=== PATIENT | female | born 1960 | race African-American/Black ===

== ENCOUNTER 2017-04-10 10:02 | Outpatient (CLI) | payer BC ==
[2017-04-10 12:23] LABS: Hematocrit 42.5 % (36.0-47.0); Red Blood Cell (RBC) Count 4.45 mill/uL (4.20-5.40); White Blood Cell (WBC) Count 4.3 thou/uL (4.8-10.8)
[2017-04-10 12:32] LABS: Bilirubin Negative (Negative); Blood, Urine Negative (Negative); Glucose, Urine (Dipstick) Negative (Negative); Ketone, Urine Negative (Negative); Nitrite Negative (Negative); Protein, Urine (Dipstick) Negative (Neg-Trace)
[2017-04-10 12:40] LABS: Bacteria/HPF None Seen HPF (None Seen); Hyaline Casts/LPF 0-3 HYALINE CAST LPF (0-3 Hyaline); RBC/HPF 0-3 HPF (0-3); Squamous Epithelial 0-3 HPF (0-3); WBC/HPF 0-3 HPF (0-3)
== END 2017-04-10 10:03 | disposition home or self-care (01) ==
LOC: LABBT 10:02
PROVIDERS: ATTEND Orthopaedic Surgery
DX: Z01.818 Encounter for other preprocedural examination (principal); M75.122 Complete rotator cuff tear or rupture of left shoulder, not specified as traumatic
CPT/HCPCS: 81001; 85027; 93005; 93010

== ENCOUNTER 2017-04-12 06:56 | Day surgery (SDC) | payer BC ==
[2017-04-10 10:21] VITALS: BMI 43.6
[2017-04-12] MEDS ORDERED: Midazolam HCl 2 mg/2 ml Vial ONE (07:45)
[2017-04-12] MEDS ORDERED: Fentanyl 100 MCG/2 ML VIAL ONE (07:45)
[2017-04-12] MEDS ORDERED: Ropivacaine 0.2% HCl/PF 20 ML ONE (07:45)
[2017-04-12] MEDS ORDERED: CEFAZOLIN/Water 2 GM/20 ML SYRINGE ONE (07:48)
[2017-04-12] MEDS ORDERED: Ketorolac Tromethamine 30 MG/ML VIAL IVP PRN (08:51)
[2017-04-12] MEDS ORDERED: Ondansetron HCl/PF 4 MG/2 ML Vial IVP PRN (08:51)
[2017-04-12] MEDS ORDERED: Promethazine HCl 25 MG/ML VIAL IM PRN (08:51)
[2017-04-12] MEDS ORDERED: Ropivacaine 0.2% 550 ML 550 ML NERVE BLCK SCH (08:51)
[2017-04-12] MEDS ORDERED: HYDROcodone/Acetaminophen 5/325 mg Tablet PO PRN ×2 (08:51)
[2017-04-12] MEDS ORDERED: traMADol HCl 50 MG TAB PO PRN ×2 (08:51)
[2017-04-12] MEDS ORDERED: Zolpidem Tartrate 5 MG TAB PO PRN (08:51)
[2017-04-12] MEDS ORDERED: Fentanyl 100 MCG/2 ML VIAL IV PRN (08:52)
[2017-04-12] MEDS ORDERED: Bupivacaine/Epinephrine 0.25% 30 ML VIAL ONE (09:05)
--- NOTE | 2017-04-12 13:26 | OP ---
DATE OF PROCEDURE: 04/12/2017 PREOPERATIVE DIAGNOSES: Left full-thickness supraspinatus, infraspinatus, teres tear with bleeding e dge subscapularis tear with retraction and fatty atrophy. POSTOPERATIVE DIAGNOSES: Left full-thickness supraspinatus, infraspinatus, teres tear with bleeding edge subscapularis tear with retraction and fatty atrophy with a biceps lesion. Full thickness supraspinatus and infraspinatus leading edge of the teres and subscapularis with a rup tured biceps chronic rotator cuff tear. PROCEDURE PERFORMED: Left arthroscopic rotator repair, double row. STAFF: Facundo Guthrie M.D. FINANCIAL ANALYSIS CONSULTANT: MARILYN Cintron. ANESTHESIA: Sukh Brand. The patient received a supraclavicular block, general endotracheal intubati on. ESTIMATED BLOOD LOSS: 50 mL. TOURNIQUET TIME: None. IMPLANTS: Implants were x3 5-5 corkscrews and x2 [employer] corkscrews and x2 5.5 [employer] site [employer]. ANTIBIOTICS: Ancef 2 grams. COMPLICATIONS: None. HISTORY OF PRESENT ILLNESS: Ms. Blair is a 57-year-old female who presented to me with left shoulder pain. The patient's pain had been present since 2011, pain can be 10/10, constant 4/10. The patien t has a history of bypass surgery. The patient had MRI evidence of a large full-thickness tear with retraction. I discussed with the patient preoperatively performing either a suprascapular reconstruc tion versus a rotator cuff repair and possible biceps tenotomy. The patient understood the risks and benefits of procedure to include pain, scar, bleeding, infection, damage to vital structures, failur e of repair, need for further surgeries, continued pain despite surgical intervention, loss of life o r limb, need for further surgeries to include reverse shoulder arthroplasty. The patient and family understood the risks and benefits and elected to proceed. PROCEDURE IN DETAIL: Timeout was performed designating the patient's left upper extremity as the ope rative site. Based on sight, consents and markings, after completion of timeout, the patient had a p osterior lateral working portal placed to visualize the rotator cuff, I did not insert intraarticular ly because I had planned doing a superior capsular reconstruction. Therefore I started from a large portal. I came in, I saw a remnant cuff tissue plane that was above that was peeled back. It was o bviously atrophied, but it served the same purpose as a superior capsular reconstruction. Given that , I visualized inside the joint. There were some degenerative changes, but not any massive full thic kness cartilage defects. There was a biceps that had already ruptured. I used a bur and burred to b leeding bone and took down 3-4 mm of the articular cartilage. I then placed 3 anchors along the fron t edge of the cartilage to pass and passed a total of 12 sutures strings for my first row, tying 6 kn ots. I then placed 2 more lateral row anchors to sew into place, I think 3 of the strands had a lit tle less tension than I desired, I pulled them taut, screwed them into place and completed my double row repair. I washed. I then closed the suture incisions with nylon. The patient's outlook is guarded. I am not sure she is going to have great healing rate of this, but given the patient's previous history of a massive cuff tear and the only option of a superior capsu lar reconstruction, her soft tissues serve as just the same purpose as superior capsular reconstructi on. I did not put it on too much tension. I felt like she had good overall coverage, hopefully she can have a healing of the rotator cuff. I will place the patient in a sling. I will see her back in 2 weeks.
[2017-04-12] MEDS ORDERED: Propofol 200 MG/20 ML VIAL ONE (15:16)
[2017-04-12] MEDS ORDERED: Ondansetron HCl/PF 4 MG/2 ML Vial ONE (15:16)
[2017-04-12] MEDS ORDERED: Glycopyrrolate 0.2 MG/ML 5 ML SYRINGE ONE (15:16)
[2017-04-12] MEDS ORDERED: ePHEDrine/0.9% NaCl/PF SYRINGE 50 mg/10 ml ONE (15:16)
== END 2017-04-12 14:35 | disposition home or self-care (01) ==
LOC: SDC 06:56
PROVIDERS: ATTEND Orthopaedic Surgery
PROC: 0LM24ZZ Reattachment of Left Shoulder Tendon, Percutaneous Endoscopic Approach (ICD-10-PCS; principal; 2017-04-12)
DX: M75.122 Complete rotator cuff tear or rupture of left shoulder, not specified as traumatic (principal); I10 Essential (primary) hypertension; F32.9 Major depressive disorder, single episode, unspecified; F41.9 Anxiety disorder, unspecified; J45.909 Unspecified asthma, uncomplicated; Z90.710 Acquired absence of both cervix and uterus; Z79.899 Other long term (current) drug therapy; Z88.1 Allergy status to other antibiotic agents; Z98.84 Bariatric surgery status; Z98.890 Other specified postprocedural states
CPT/HCPCS: A4306; C1713; G8984-GP-CK; G8985-GP-CK; G8986-GP-CK; J2250; J2405; J2704; J2795; J3010

== ENCOUNTER 2017-12-20 10:08 | Outpatient (CLI) | payer BC | END 2017-12-20 10:09 | disposition home or self-care (01) | LOC: BICMAMMO 10:08 | PROVIDERS: ATTEND Nurse Practitioner | DX: Z12.31 Encounter for screening mammogram for malignant neoplasm of breast (principal) | CPT/HCPCS: 77063; 77067 ==

== ENCOUNTER 2018-02-01 10:15 | Outpatient (CLI) | payer BC ==
--- NOTE | 2018-02-01 13:17 | MRI ---
NONCONTRAST MRI LUMBAR SPINE: DATE: 02/01/2018. HISTORY: Spinal stenosis with claudication. The patient complains of right hip and leg burning sensation for a year. COMPARISON: None available. FINDINGS: The retroperitoneal structures demonstrate a normal nonenhanced MRI appearance. Conus medullaris is normal in appearance and terminates at the L1-2 level. There are multilevel degenerative changes seen throughout the lumbar spine including prominent end pl ate degenerative changes at the L3-4 level. There is mild heterogeneity to the bone marrow. Vacuum phenomenon is seen in the intervertebral disks of the lumbar spine at all levels. T12-L1 level: There is a mild disk-osteophyte complex which results in slight effacement of the vent ral subarachnoid space. Mild facet hypertrophic changes are present. There is no encroachment on th e spinal cord and neural foramen are patent. L1-2 level: There is loss of intervertebral disk height. There is a mild broad-based disk-osteophyt e complex. There is only mild flattening of the thecal sac anteriorly. Neural foramina are patent. L2-3 level: There is loss of intervertebral disk height. There is a broad-based disk-osteophyte com plex with facet hypertrophic changes. There is generalized mild narrowing of the central spinal lorenzo l with mild bilateral neural foraminal narrowing. L3-4 level: There are prominent end plate degenerative changes with loss of the intervertebral disk height. There is a broad-based disk-osteophyte complex present with facet hypertrophic changes and l igamentous thickening. There is severe narrowing of the central spinal canal and narrowing of the la teral recesses bilaterally. There is severe left-sided neural foraminal narrowing with moderate righ t-sided neural foraminal narrowing. L4-5 level: There is loss of intervertebral disk height. There is a broad-based disk-osteophyte com plex with prominent facet hypertrophic changes. There is moderate narrowing of the central spinal ca nal. There is severe bilateral neural foraminal narrowing present. There is fluid signal intensity seen within the facet joints. L5-S1 level: There is loss of intervertebral disk height. There is a broad-based disk-osteophyte co mplex and moderate facet hypertrophic changes primarily on the right. There is no significant narrow ing of the thecal sac at this level. There is severe right and moderate to severe left-sided neural foraminal narrowing. IMPRESSION: Multilevel degenerative changes in the lumbar spine with moderate and severe degrees of neural forami nal narrowing in the lower lumbar spine as described above. POS: [id number]
== END 2018-02-01 10:16 | disposition home or self-care (01) ==
LOC: TBSIIMAG 10:15
PROVIDERS: ATTEND Nurse Practitioner Family
DX: M48.062 Spinal stenosis, lumbar region with neurogenic claudication (principal); M47.896 Other spondylosis, lumbar region; M99.83 Other biomechanical lesions of lumbar region
CPT/HCPCS: 72148

== ENCOUNTER 2018-05-06 09:00 | Outpatient (CLI) | payer BC ==
--- NOTE | 2018-05-06 11:44 | MRI ---
MRI OF THE RIGHT SHOULDER WITHOUT CONTRAST: INDICATION: History of right shoulder pain. COMPARISON: Right shoulder radiograph dated 07/05/2012. FINDINGS: There is complete tear of the supraspinatus and infraspinatus. There is a high-grade articular surfa ce tear involving the subscapularis involving approximately 50-75% of the tendon thickness. The long head of the biceps tendon is completely disrupted and retracted down to the distal bicipital groove. There is moderate glenohumeral osteoarthrosis. There is moderate atrophy of the supraspinatus and infraspinatus. There is an intraarticular body within the subcortical recess measuring 1.2 cm. Ther e is an additional 5 mm intraarticular body within the subcoracoid recess. There is moderate AC join t osteoarthrosis. IMPRESSION: 1. Large rotator cuff tear with moderate rotator cuff muscular atrophy. 2. Moderate glenohumeral osteoarthrosis with intraarticular bodies. 3. Disruption of the long head of the biceps tendon with retraction of the level of the distal occip ital groove. 4. High-grade articular surface partial thickness tear of the subscapularis. 5. Moderate acromioclavicular joint osteoarthrosis. POS: [facility]
== END 2018-05-06 09:01 | disposition home or self-care (01) ==
LOC: BICMRI 09:00
PROVIDERS: ATTEND Orthopaedic Surgery
DX: M25.511 Pain in right shoulder (principal); M75.101 Unspecified rotator cuff tear or rupture of right shoulder, not specified as traumatic; S41.011A Laceration without foreign body of right shoulder, initial encounter; M19.011 Primary osteoarthritis, right shoulder

== ENCOUNTER 2018-09-17 03:37 | Outpatient (CLI) | payer BC ==
[2018-09-17 11:23] LABS: Mean Corpuscular HGB CONC 32.2 g/dL (32.0-36.0); Mean Corpuscular Hemoglobin 29.6 pg (27.0-31.0); Mean Corpuscular Volume 91.9 fL (78.0-98.0); Platelet Count 267 thou/uL (130-400); RBC Distribution Width 12.6 % (11.5-14.5); Red Blood Cell (RBC) Count 4.39 mill/uL (4.20-5.40); White Blood Cell (WBC) Count 4.5 thou/uL (4.8-10.8)
[2018-09-17 11:30] LABS: PTT 28.1 SEC (22.9-36.1); Prothrombin Time 13.5 SEC (12.0-14.7)
[2018-09-17 11:44] LABS: Anion Gap 9 mmol/L (10-20); BUN (Urea Nitrogen) 17 mg/dL (9.8-20.1); Calc. Creatinine Clearance 0 mL/min (70-130); Calcium 9.9 mg/dL (7.8-10.44); Carbon Dioxide 29 mmol/L (22-29); Chloride 105 mmol/L (98-107); Estimated GFR-MDRD 85; Glucose 89 mg/dL (70-105); Potassium 4.2 mmol/L (3.5-5.1); Sodium 139 mmol/L (136-145)
== END 2018-09-17 03:38 | disposition home or self-care (01) ==
LOC: LABBT 03:37
PROVIDERS: ATTEND Surgery
DX: Z01.818 Encounter for other preprocedural examination (principal); M54.16 Radiculopathy, lumbar region; M48.061 Spinal stenosis, lumbar region without neurogenic claudication
CPT/HCPCS: 80048; 85027; 85610; 85730; 93005; 93010

== ENCOUNTER 2018-09-24 06:26 | Day surgery (SDC) | payer BC ==
[2018-09-17 10:46] VITALS: BMI 44.2
[2018-09-24] MEDS ORDERED: Bacitracin Zinc Ointment 30 gm TUBE ONE (09:43)
[2018-09-24] MEDS ORDERED: Thrombin 5000 UNITS/5 ML VIAL ONE (09:43)
[2018-09-24] MEDS ORDERED: Sodium Chloride 0.9% 10 ML ONE (09:43)
[2018-09-24] MEDS ORDERED: Fentanyl 100 MCG/2 ML VIAL ONE ×2 (09:56→14:39)
[2018-09-24] MEDS ORDERED: PROPOFOL 200 MG/20 ML VIAL ONE (11:32)
[2018-09-24] MEDS ORDERED: ePHEDrine 50 MG/ML VIAL ONE (11:32)
[2018-09-24] MEDS ORDERED: Lidocaine 1% PF 5 ML VIAL ONE (11:32)
[2018-09-24] MEDS ORDERED: Glycopyrrolate 0.2 MG/ML 5 ML SYRINGE ONE (11:32)
[2018-09-24] MEDS ORDERED: Dexamethasone 20 MG/5 ML VIAL ONE (11:32)
[2018-09-24] MEDS ORDERED: PHENYLEPHRINE-NS 100 MCG/ML 10 ML SYRINGE ONE (11:32)
[2018-09-24] MEDS ORDERED: Ondansetron PF 4 MG/2 ML Vial ONE (11:32)
[2018-09-24] MEDS ORDERED: Rocuronium Bromide 10 MG/ML (10ML VIAL) ONE (11:32)
--- NOTE | 2018-09-24 13:38 | OP ---
DATE OF PROCEDURE: 09/24/2018 COMMUTATOR ASSEMBLER: Damon Oreilly PA-C PREOPERATIVE DIAGNOSIS: Multilevel lumbar stenosis with low back and leg pain with lumbar disk extrusion with paracentral and lateral components, right L5-S1. PROCEDURE PERFORMED: 1. L2-L3, L3-L4, L4-L5, L5-S1 laminectomies, partial facetectomies, and foraminotomies. 2. Right L5-S1 laminotomy for decompression of the spinal cord and nerve roots with paracentral diskectomy. 3. Right L5-S1 transfacet diskectomy for lateral and far-lateral components for decompression of the exiting right L5 nerve root. 4. Use of operative microscope for microdissection. DESCRIPTION OF PROCEDURE: After informed consent was obtained from the patient, the patient was brought to the OR. Proper patient, pause, and identification were carried out. She was then placed under excellent general endotracheal anesthesia and positioned prone on the OR table. All appropriate points were padded. We identified the linear breana that allowed for approach to the L2, L3, L4, L5, and S1 dorsal spines and lamina. This region was sterilely cleansed, prepared, and draped. Proper patient, pause, and identification were carried out. The wound was then opened with a combination of sharp, monopolar, and blunt dissection. The L2, L3, L4, L5, and S1 dorsal spines and lamina were exposed. Given the patient's body habitus, I did expose on the left side at L5-S1 to maximize exposure. In order to maximize exposure and allow for the right L5-S1 transfacet approach, I also performed left essentially an L5-S1 laminectomy. I then performed L2-L3, L3-L4, L4-L5, L5-S1 laminectomies, partial facetectomies and foraminotomies to maximize exposure. We then worked over the right L5-S1 segment to maximize decompression and did a paracentral diskectomy. I then did a trans-facet approach on the right side to expose and skeletonize right L5 nerve root, removing lateral and far-lateral disk material that was herniated. I was satisfied with decompression of bilateral L2, L3, L4, L5, and S1 nerve roots due to the patient's body habitus in order to obtain satisfactory exposure rather than do just a right L5-S1 hemilaminotomy, I had to expose both sides and to maximize the exposure essentially, do a modified laminectomy at L5-S1, as such I did that and I did a right L5-S1 diskectomy, but also the right L5-S1 transfacet approach. As such the reason I am billing was [id number] [phone] rather than [id number] as I did do more than just hemilaminotomy work at the L5-S1 segment. Copious irrigation occurred throughout. There was no CSF leak. The wound was copiously irrigated and closed in anatomic layers following sprinkling of vancomycin powder. The patient had emerged from anesthesia. Job ID: [id number]
[2018-09-24] MEDS ORDERED: Mag-Al 1200 mg/1200 mg/30 ML UDCUP PO PRN (14:06)
[2018-09-24] MEDS ORDERED: Promethazine HCl 25 MG/ML VIAL IM/IV PRN (14:06)
[2018-09-24] MEDS ORDERED: Bisacodyl 10 MG SUPP PR PRN (14:06)
[2018-09-24] MEDS ORDERED: Milk Of Magnesia 30 ML UDCUP PO PRN (14:06)
[2018-09-24] MEDS ORDERED: Morphine Sulfate 2 MG/ML SYRINGE SLOW IVP PRN (14:16)
[2018-09-24] MEDS ORDERED: Promethazine HCl 25 MG/ML VIAL SLOW IVP PRN (14:16)
[2018-09-24] MEDS ORDERED: Promethazine HCl 25 MG/ML VIAL IM PRN (14:16)
[2018-09-24] MEDS ORDERED: HYDROmorphone 2 MG/ML VIAL SLOW IVP PRN (14:16)
[2018-09-24] MEDS ORDERED: PACU-Morphine 4MG/ML VIAL SLOW IVP PRN (14:16)
[2018-09-24] MEDS ORDERED: Ondansetron HCl/PF 4 MG/2 ML Vial IVP PRN (14:16)
[2018-09-24] MEDS ORDERED: Morphine 2 MG/ML SYRINGE SLOW IVP PRN (14:37)
[2018-09-24] MEDS ORDERED: HYDROmorphone 2 MG/ML VIAL ONE (14:52)
[2018-09-24] MEDS ORDERED: Fleet Enema 133 ML BOT PR PRN (15:00)
[2018-09-24] MEDS ORDERED: CEFAZOLIN 2 GM in Premix Bag 1 BAG IVPB SCH (15:45)
[2018-09-24] MEDS: Sodium Chloride 0.9% 1,000 ML IV SCH (16:18)
[2018-09-24] MEDS: CEFAZOLIN 2 GM in Premix Bag 1 BAG IVPB SCH (18:11)
[2018-09-24] MEDS: tiZANidine HCl 4 MG TAB PO PRN (19:46)
[2018-09-24] MEDS: Acetaminophen/Codeine 30-300mg Tablet PO PRN (21:14)
[2018-09-24] MEDS: traZODone HCl 50 MG TAB PO SCH (21:14)
[2018-09-25] MEDS: HYDROcodone/Acetaminophen 7.5/325 mg Tablet PO PRN ×4 (01:39→19:51)
[2018-09-25] MEDS: CEFAZOLIN 2 GM in Premix Bag 1 BAG IVPB SCH (01:39)
[2018-09-25] MEDS: tiZANidine HCl 4 MG TAB PO PRN ×2 (04:35→10:48)
[2018-09-25] MEDS: traMADol HCl 50 MG TAB PO PRN ×2 (04:36→11:33)
[2018-09-25] MEDS: Sodium Chloride 0.9% 1,000 ML IV SCH ×4 (04:45→22:00)
[2018-09-25] MEDS: Acetaminophen/Codeine 30-300mg Tablet PO PRN (07:25)
[2018-09-25] MEDS: Lisinopril 20 MG TAB PO SCH (07:26)
[2018-09-25] MEDS: Gabapentin 300 MG CAP PO PRN ×2 (07:26→16:50)
[2018-09-25] MEDS ORDERED: Acetaminophen/Codeine 30-300mg Tablet PO PRN (09:01)
--- NOTE | 2018-09-25 10:04 | PRG ---
DATE OF SERVICE: 09/25/2018 Ms. Blair is postoperative day 1 from multilevel lumbar laminectomy. She has morbid obesity and obviously surgical pain will be an issue given her size, however, her leg pain is improved. She does have paresthesias in the right lower extremity, but moves this without deficit with the exception of generalized weakness in bilateral lower extremities in my opinion due to deconditioning. I encouraged her and let her know we need to mobilize more. She will do this today. Job ID: [id number]
[2018-09-25] MEDS ORDERED: Sodium Chloride 0.9% 1,000 ML IV SCH (21:30)
[2018-09-25] MEDS: traZODone HCl 50 MG TAB PO SCH (21:57)
[2018-09-26] MEDS: Gabapentin 300 MG CAP PO PRN ×2 (01:53→07:38)
[2018-09-26] MEDS: Acetaminophen 325 MG TAB PO PRN ×5 (01:53→19:39)
[2018-09-26] MEDS ORDERED: Ketorolac Tromethamine 30 MG/ML VIAL ONE (08:13)
[2018-09-26] MEDS: Sodium Chloride 0.9% 1,000 ML IV SCH (08:18)
[2018-09-26] MEDS: Ketorolac Tromethamine 30 MG/ML VIAL IVP SCH ×3 (08:20→21:04)
[2018-09-26] MEDS: Lisinopril 20 MG TAB PO SCH (08:20)
--- NOTE | 2018-09-26 10:48 | PRG ---
DATE OF SERVICE: 09/26/2018 This is Damon Oreilly PA-C dictating a report for Pete Thomas MD. Ms. Blair is postoperative day #2, having undergone multilevel lumbar laminectomies, diskectomy. The patient states she has complete resolution of her right lower extremity symptoms that she had yesterday and now they have moved into the left buttock and posterior thigh as well as continued significant back pain. She has been able to walk. She has excellent strength in the bilateral lower extremities. We will add Toradol to her pain regimen, and we will check on her at lunch and hope for her to go home at that time. Otherwise, we will work on adequate pain control and go from there. Please call with any changes in the patient's neurologic status. Job ID: [id number]
[2018-09-26] MEDS: HYDROcodone/Acetaminophen 7.5/325 mg Tablet PO PRN (19:38)
[2018-09-26] MEDS: traZODone HCl 50 MG TAB PO SCH (21:08)
[2018-09-27] MEDS: Ketorolac Tromethamine 30 MG/ML VIAL IVP SCH ×2 (03:05→08:42)
[2018-09-27 08:11] VITALS: BP 140/85; TEMP 98.3
[2018-09-27] MEDS: Lisinopril 20 MG TAB PO SCH (08:38)
[2018-09-27] MEDS: HYDROcodone/Acetaminophen 7.5/325 mg Tablet PO PRN (08:38)
--- NOTE | 2018-09-28 01:08 | DIS ---
DATE OF ADMISSION: 09/24/2018 DATE OF DISCHARGE: 09/27/2018 This is Damon Oreilly PA-C dictating a report for Pete Thomas MD. DISCHARGE DIAGNOSES: 1. Lumbar spinal stenosis with radiculopathy. 2. Morbid obesity. HOSPITAL COURSE: Ms. Blair was admitted to undergo multilevel lumbar laminectomy for decompression of nerve roots. Her surgery was without complication. She required several overnight stays for adequate pain control. At the time of discharge, the patient had some numbness and tingling into the right lower extremity, however, complete resolution of her leg pain. She did have some incisional back pain but overall appeared very comfortable at the time of discharge. She had excellent strength in the bilateral lower extremities and has met criteria for discharge. Appropriate patient education and outpatient materials were provided to the patient. She was very pleased with her outcome postoperatively. Job ID: [id number]
== END 2018-09-27 12:32 | disposition home or self-care (01) ==
LOC: SDC 06:26 → 3SE 16:18 → 2SW 09-26 19:21 → SDC 09-27 12:32
PROVIDERS: ATTEND Surgery
PROC: 01NB0ZZ Release Lumbar Nerve, Open Approach (ICD-10-PCS; principal; 2018-09-24)
DX: M48.061 Spinal stenosis, lumbar region without neurogenic claudication (principal); M51.16 Intervertebral disc disorders with radiculopathy, lumbar region; E66.01 Morbid (severe) obesity due to excess calories; Z68.41 Body mass index [BMI] 40.0-44.9, adult; Z88.1 Allergy status to other antibiotic agents; Z79.899 Other long term (current) drug therapy
CPT/HCPCS: 76000; J0131; J0690; J1100; J1170; J1885; J2001; J2270; J2405; J2704; J3010; J3370; J3490

== ENCOUNTER 2018-10-14 17:39 | Emergency (ER) | payer BC ==
[2018-10-14 18:01] LABS: Bilirubin Negative (Negative); Blood, Urine Negative (Negative); Clarity CLEAR (Clear); Glucose, Urine (Dipstick) Negative (Negative); Leukocyte Negative (Negative); Nitrite Negative (Negative); Protein, Urine (Dipstick) Negative (Neg-Trace); Specific Gravity, Urine 1.024 (1.002-1.036); Urobilinogen 0.2 mg/dL (0.2-1.0); pH, Urine 5.5 (5.0-9.0)
== END 2018-10-14 18:34 | disposition home or self-care (01) ==
LOC: ERS 17:39
DX: T81.30XA Disruption of wound, unspecified, initial encounter (principal); E66.9 Obesity, unspecified; Z79.891 Long term (current) use of opiate analgesic; Z79.899 Other long term (current) drug therapy
CPT/HCPCS: 81003

== ENCOUNTER 2022-03-31 21:05 | Observation (INO) | payer BC ==
[2022-04-01] MEDS ORDERED: Acetaminophen 325 MG TAB PO PRN (00:23)
[2022-04-01] MEDS ORDERED: Ondansetron ODT 4 MG TAB PO PRN (00:23)
[2022-04-01] MEDS ORDERED: Albuterol Sulfate 2.5 mg/3 ml Neb NEB PRN ×2 (00:46→17:36)
[2022-04-01] MEDS ORDERED: Benzonatate 100 MG CAP PO PRN (00:50)
[2022-04-01 00:57] VITALS: BMI 42.3
[2022-04-01] MEDS ORDERED: Albuterol Sulfate 2.5 mg/3 ml Neb NEB SCH (01:00)
[2022-04-01] MEDS ORDERED: traZODone HCl 50 MG TAB PO SCH ×2 (01:00→21:00)
[2022-04-01] MEDS ORDERED: Benzonatate 100 MG CAP PO SCH (01:00)
[2022-04-01] MEDS ORDERED: Gabapentin 300 MG CAP PO PRN (01:27)
[2022-04-01] MEDS: Albuterol Sulfate 2.5 mg/3 ml Neb NEB SCH ×6 (03:11→14:15)
[2022-04-01] MEDS: Cholecalciferol 1,000 UNITS (25 MCG) TAB PO SCH (08:15)
[2022-04-01] MEDS: Enoxaparin Sodium 40 MG/0.4 ML SYRINGE SC SCH (08:16)
[2022-04-01] MEDS: guaiFENesin ER 600 MG TAB PO SCH ×2 (08:16→20:34)
[2022-04-01] MEDS: Lisinopril 20 MG TAB PO SCH (08:16)
[2022-04-01] MEDS: Sertraline 100 MG TAB PO SCH (08:16)
[2022-04-01] MEDS: predniSONE 20 MG TAB PO SCH ×2 (08:16→16:21)
[2022-04-01] MEDS: Amlodipine 5 MG TAB PO SCH (08:17)
[2022-04-01] MEDS ORDERED: Mometasone 200 MCG/Formoterol 5 MCG 120 PUFF INHALER INH SCH ×2 (09:00→18:30)
[2022-04-01] MEDS ORDERED: ERGOCALCIFEROL 50 MCG PO SCH (09:00)
[2022-04-01] MEDS: Oseltamivir 75 MG CAP PO SCH ×2 (10:57→20:34)
[2022-04-01] MEDS: Mometasone 200 MCG/Formoterol 5 MCG 120 PUFF INHALER INH SCH (19:48)
[2022-04-02] MEDS: Mometasone 200 MCG/Formoterol 5 MCG 120 PUFF INHALER INH SCH (07:03)
[2022-04-02] MEDS: Cholecalciferol 1,000 UNITS (25 MCG) TAB PO SCH (08:22)
[2022-04-02] MEDS: Sertraline 100 MG TAB PO SCH (08:22)
[2022-04-02] MEDS: guaiFENesin ER 600 MG TAB PO SCH (08:23)
[2022-04-02] MEDS: Amlodipine 5 MG TAB PO SCH (08:23)
[2022-04-02] MEDS: predniSONE 20 MG TAB PO SCH (08:24)
[2022-04-02] MEDS: Oseltamivir 75 MG CAP PO SCH (08:24)
[2022-04-02] MEDS: Enoxaparin Sodium 40 MG/0.4 ML SYRINGE SC SCH (08:24)
[2022-04-02] MEDS: Lisinopril 20 MG TAB PO SCH (08:24)
[2022-04-02 14:46] VITALS: BP 131/85; TEMP 97.8
== END 2022-04-02 15:04 | disposition home or self-care (01) ==
LOC: T4-B 04-01 00:14
PROVIDERS: ADMIT Family Medicine; ATTEND Family Medicine
DX: J10.1 Influenza due to other identified influenza virus with other respiratory manifestations (principal); J45.901 Unspecified asthma with (acute) exacerbation; J96.01 Acute respiratory failure with hypoxia; I10 Essential (primary) hypertension; G47.00 Insomnia, unspecified; G89.29 Other chronic pain; M54.50 Low back pain, unspecified; E66.9 Obesity, unspecified; Z68.41 Body mass index [BMI] 40.0-44.9, adult; Z79.899 Other long term (current) drug therapy; Z88.1 Allergy status to other antibiotic agents; Z20.822 Contact with and (suspected) exposure to COVID-19
CPT/HCPCS: 94640; 96372; G0378; J1650; J7512; J7611